=== PATIENT | female | born 1985 | race African-American/Black ===

== ENCOUNTER 2020-07-14 10:02 | Outpatient (CLI) | payer OTHER, SELFPAY ==
--- NOTE | ~2020-07-14 | XR_ITS ---
XR hysterosalpingogram DATE: 07/14/2020 12:03 INDICATION: Fertility testing TECHNIQUE: Fluoroscopy and spot images were performed during a hysterosalpingogram procedure performe d by the access liaison. 2 minutes fluoroscopy time DAP: 11.5 40 mL Omnipaque 240 contrast COMPARISON: None FINDINGS: Initial injection resulted in venous reflux of contrast material. Subsequently catheter placement in the uterine cavity revealed bilateral normal fallopian tube opacif ication and evidence of bilateral peritoneal spillage. IMPRESSION: Bilateral fallopian tube patency Reviewed, dictated and finalized at [facility]. Reviewed, dictated and finalized at [facility]. RITY SCREENER
[2020-07-14 11:12] LABS: Beta HCG Quantitative < 2.39 mIU/ML
== END 2020-07-14 10:03 | disposition home or self-care (01) ==
PROVIDERS: PCP Obstetrics & Gynecology; Visit Provider Obstetrics & Gynecology
DX: Z31.41 Encounter for fertility testing (principal)
CPT/HCPCS: 36415; 58340; 74740; 84702; Q9966

== ENCOUNTER → 2021-05-30 13:40 | Outpatient (CLI) | payer OTHER, SELFPAY ==
--- NOTE | ~2021-05-30 | US_ITS ---
EXAMINATION: US OB transvaginal DATE: 05/30/2021 14:23 INDICATION: Uncertain gestational dates TECHNIQUE: Real-time transabdominal and transvaginal obstetric ultrasound. FINDINGS: No prior studies for comparison. The uterus measures 9 x 6.9 x 6.4 cm. There is an intrauterine gestational sac, with pole ident ified. The crown rump length measures 2.31 cm, which correlates with a estimated gestational age of 5 weeks 6 days. No heart motions detected. There is a uterine fibroid measuring 2.7 cm. There i s a 1.6 cm corpus luteal cyst of the left ovary. Right ovary is unremarkable. No free fluid in the pe lvic cul-de-sac. IMPRESSION: 1. Intrauterine gestational sac containing a pole corresponding to 5 week 6 day gestation (KELY 01/24/2022). No heart motions detected. This may be due to early gestational age or demise . Recommend follow-up with serial quantitative beta-hCG levels and ultrasound as clinically indicated . Reviewed, dictated and finalized at location [facility]. IMPRESSION: 1. Intrauterine gestational sac containing a pole corresponding to 5 week 6 day gestation (KELY 01/24/2022). No heart motions detected. This may be due to early gestational age or demise. Recommend follow-up with serial q uantitative beta-hCG levels and ultrasound as clinically indicated.
== END ==
PROVIDERS: Visit Provider Nurse Practitioner
DX: Z34.91 Encounter for supervision of normal pregnancy, unspecified, first trimester (principal); Z3A.01 Less than 8 weeks gestation of pregnancy
CPT/HCPCS: 76817

== ENCOUNTER → 2021-06-07 09:39 | Outpatient (CLI) | payer OTHER, SELFPAY ==
--- NOTE | ~2021-06-07 | US_ITS ---
EXAMINATION: US OB transvaginal DATE: 06/07/2021 11:36 INDICATION: First trimester viability assessment TECHNIQUE: Real-time pelvic transabdominal and transvaginal ultrasound was performed. COMPARISON: 05/30/2021 FINDINGS: The uterus measures 8.7 x 5.9 x 6.6 cm. There is an intrauterine gestational sac which is now irregular in appearance. A yolk sac is identified. No cardiac motion is observed. The crown rump length is difficult to measure. The right ovary measures 1.6 x 1.1 x 2.1 cm. The left ova ry measures 3.1 x 2.2 x 2.7 cm and contains a 1.4 x 1.3 cm complex cyst. There is normal vascular yarelis w in the ovaries. There is no free fluid in the pelvis. IMPRESSION: 1. Irregular gestational sac with pole difficult to measure and no demonstrable cardiac motion. Findings are concerning for failure. Reviewed, dictated and finalized at location [facility]. IMPRESSION: 1. Irregular gestational sac with pole difficult to measure and no demons trable cardiac motion. Findings are concerning for failure.
== END ==
PROVIDERS: Visit Provider Obstetrics & Gynecology Gynecology
DX: O36.80X0 Pregnancy with inconclusive fetal viability, not applicable or unspecified (principal); N83.202 Unspecified ovarian cyst, left side
CPT/HCPCS: 76817

== ENCOUNTER 2021-06-09 02:36 | Day surgery (SDC) | payer OTHER, SELFPAY ==
[2021-06-08 09:01] VITALS: BMI 24.2
--- NOTE | 2021-06-08 09:12 | PC.NURSE ---
Report to the Outpatient Waiting Room, entrance under the green pavilion located off [facility], at time ___1000____ on date __06/09/21 . OR Time: ___1200 . - You and your visitor will be asked a series of questions to screen for COVID 19 for your protection. - A mask is required within the hospital. - Only one visitor is allowed at this time. Patient visitors will be guided where to wait when not with patient. Preoperative COVID Testing Requirements: No COVID Test needed if: (proof is required; if not received patient will have Rapid Test prior to entry) - Patient has received COVID Vaccine at least 14 days prior to procedure date or - Patient has positive COVID test result within last 90 days of surgery date. COVID Test needed if above criteria is not met If not COVID vaccinated a COVID test must be conducted within 72 hours of surgery and patient is asked to isolate self from time of testing until procedure. You will go to the [employer] [facility] for your COVID testing. The [employer] [facility] is located at the corner of [address] from [facility]. You will only be called if COVID results are positive and your surgeon may reschedule your elective surgery date. Patients may have clear liquids (water, carbonated beverages, clear teas, apple juice) until 3 hours prior to surgery with a maximum of 20 ounces. - No food from midnight until time of surgery - Infants may have breast milk until 4 hours before surgery, formula 6 hours prior to surgery. - Children will be allowed to drink immediately following surgery. If applicable, please bring a bottle or sippy cup to assist with drinking. Juice, water, soda, and popsicles are readily available. For infants on formula, please bring formula the day of surgery. Pacifiers are allowed. Take the following medications with a SIP of water the morning of surgery: ____NONE Medications to discontinue per physician ALL VITAMINS/SUPPLEMENTS, ASPIRIN Date to take last dose__LAST DOSE WAS 06/05/21 Please no make-up, nail uzbek, hairspray, perfume, deodorant, or body powder the day of surgery. No jewelry (including any body piercings) or valuables the day of surgery, leave them at home. Please take a shower or bath the night before, or the morning of, surgery with an antibacterial soap. Wear comfortable, loose fitting clothing. Children are encouraged to wear pajamas. - Jewelry must be removed prior to entering the operating room. Rings and piercings that are not removed may be cut off. - The hospital will not accept responsibility for valuables. - Please leave all valuables, including medications, at home the day of surgery. If you are going home after surgery, a licensed jukebox route driver must drive you home. - NO public transportation without another adult. - We recommend that an adult stay with you for 24 hours following discharge. - We also recommend that you do not drive, make important decision, drink alcoholic beverages, or take any drugs that were not prescribed by your health care provider for at least 24 hours after your discharge time. For Pediatric surgeries, we recommend two adults accompany the child home (only one inside the building at this time). Follow any additional instructions given to you from your surgeon. Telephone instructions given to ____PATIENT and asked if any additional questions and then verbalized understanding. Patient advised to call surgeon office or pre surgery nurse liaison [phone] if any additional questions.
[2021-06-09 10:48] VITALS: BP 115/94; PULSE 104; RESP 20; TEMP 36.6; O2SAT 100
--- NOTE | 2021-06-09 10:48 | P.PNAN_ITS ---
Anes - Initial Pre Proc Eval Procedure: Operation Date: 06/09/21 12:00 Proposed Procedures p Suction Dilatation and Curettage - Lorie Magallanes MD Date/Time: 06/09/21 10:48 Surgeon: Lorie Magallanes MD Pre Op Diagnosis: missed ab Patient Data Age: 36 Gender: F Height: 1.57 m Weight: 60 kg Allergies Allergy/AdvReac Type Severity Reaction Status Date / Time No Known Allergies Allergy Verified 06/09/21 10:36 Home Medications Medication Instructions Recorded Confirmed Type aspirin [Adult Aspirin] 81 mg PO DAILY 06/08/21 06/08/21 History choline 1 cap PO DAILY 06/08/21 06/08/21 History vit no.[id number] 1 tablet PO DAILY 06/08/21 06/08/21 History [Classic ] Patient hx anesthesia problems: none Family hx anesthesia problems: none Results Review: All pre-operative results and documents have been reviewed as part of the pre-operative evaluation. [facility] Social History Social History Smoking status: Never smoker Alcohol intake: current Drinks per week: 4 Substance use: never Living arrangements: with family Additional living arrangements comments: Spiritual care concerns: No Anes - Eval Final PreProcedure Day of Procedure 06/09/21 10:48 Patient weight: normal Heart: regular rate and rhythm Lungs: clear to auscultation Airway: Mallampati scale class 1 Neurological: alert and oriented Last oral intake: >/= 8 hours ASA classification: I Emergent: no Anesthetic plan: proceed Anesthesia type and monitoring: general GIVS and standard monitoring Results Review: All pre-operative results and documents have been reviewed as part of the pre-operative evaluation. Informed Consent: The patient's anesthetic plan and its attendant risks and benefits were discussed with the patient/family/POA. Questions were solicited and answers provided to the satisfaction of the patient/family/POA.
[2021-06-09] MEDS: ACETAMINOPHEN 500 MG TABLET 1000 MG PO (10:53)
[2021-06-09] MEDS: LACTATED RINGERS 1,000 ML 30 ML IV CONT (10:54)
--- NOTE | 2021-06-09 11:57 | P.HP_ITS ---
History of Present Illness History of Present Illness Consent: Risks, benefits, and alternatives have been discussed and questions answered. Patient agrees to proceed with procedure. Chief complaint: missed ab Narrative: Yokasta Vo is a 36 year old female with decreasing beta HCG levels and pelvic ultrasound revealing a small sac that is irregular and no demonstrated cardiac motion. Findings are consistent with a missed . Options were discussed with the patient and she has chosen to proceed with surgical intervention. Plan is to proceed with suction D&C. Risks of infection, bleeding, and perforation were reviewed. Patient voices understanding and agrees to proceed. Postop expectations were discussed with the patient. Review of Systems Review of Systems: No vaginal bleeding or cramping No complaints PMFSH Past Medical History Medical History (Updated 06/09/21 @ 12:01 by Lorie Magallanes MD) Termination of 2002 Ulcerative colitis Diagnosed 2008 no meds required since 2010 Social History Social History Smoking status: Never smoker Alcohol intake: current Drinks per week: 4 Substance use: never Living arrangements: with family Additional living arrangements comments: Spiritual care concerns: No Meds Home Medications and Allergies Home Medications Medication Instructions Recorded Confirmed Type aspirin [Adult Aspirin] 81 mg PO DAILY 06/08/21 06/08/21 History choline 1 cap PO DAILY 06/08/21 06/08/21 History vit [id number] 1 tablet PO DAILY 06/08/21 06/08/21 History [Classic ] Allergies Allergy/AdvReac Type Severity Reaction Status Date / Time No Known Allergies Allergy Verified 06/09/21 10:36 Vital Signs Vital Signs - 24 hr 06/09/21 10:48 Temperature 97.9 F Pulse Rate 104 H Respiratory Rate 20 Blood Pressure 115/94 H Pulse Oximetry 100 Exam 2 Const: General: healthy appearing and alert Orientation/consciousness: patient oriented x3 GI: GI Palp: Yes Soft to palpation, No Tenderness to palpation present (GI) and No Palpable mass present : External Female Exam: normal external appearance Speculum Exam - Vagina: normal appearance of the vagina and normal vaginal discharge Speculum Exam - Cervix: normal appearance of the cervix Bimanual exam- vagina & uterus: uterine size normal and consistency normal Bimanual Exam- Adnexa, other: normal adnexae and No adnexal tenderness Neuro: General: patient oriented x3 Assessment and Plan Assessment and plan (1) Missed : Code(s): O02.1 - Missed Status: Acute Assessment and Plan: Plan to proceed with suction D&C
--- NOTE | 2021-06-09 12:01 | WPDHPUPDATE1 ---
History and Physical Update Update Date/Time: 06/09/21 12:01 History and Physical has been reviewed, including an updated exam of the patient. There are NO changes in the patient's condition. Risks, benefits, and alternatives have been discussed and questions answered. Patient agrees to proceed with procedure.
--- NOTE | 2021-06-09 12:25 | P.OP_ITS ---
Procedure Note - Detailed Date of Procedure 06/09/21 Pre-op Diagnosis missed ab Post-op Diagnosis same Procedure Performed Suction D&C Surgeon Lorie Magallanes MD Anesthesia MAC and local Findings Uterus sounds to 10cm. Minimal products of conception. Description of Procedure The patient was taken to the operating room and placed under anesthesia in the dorsal lithotomy position. She was prepped and draped in the usual sterile fashion. The bivalve speculum was placed in the vagina and the cervix grasped on the anterior lip with a tenaculum. The cervix is injected with 1% lidocaine in each quadrant. The uterus is sounded to 10cm. The 8cm curved suction curette was used to evacuate the uterus until no further products were noted in the tubing. Sharp curette was performed and no additional products were noted. One additional pass with the curved suction curette was taken. All instruments are removed. Sponge, needle, and instrument counts are correct per the OR staff. Patient is awakened from anesthesia and taken to recovery in stable co ndition. Estimated Blood Loss 10 Drains No Packing No Pathology yes (Endometrial products of conception) Complications No immediate complications Condition stable Disposition PACU
[2021-06-09 12:35] VITALS: BP 137/86; PULSE 94; RESP 16; O2SAT 100
[2021-06-09 13:05] VITALS: BP 136/83; PULSE 86; RESP 16
== END 2021-06-09 13:19 | disposition home or self-care (01) ==
PROVIDERS: Visit Provider Obstetrics & Gynecology Gynecology
PROC: (CPT 59820; principal; 2021-06-09 12:00)
DX: O02.1 Missed abortion (principal); Z87.19 Personal history of other diseases of the digestive system; Z79.82 Long term (current) use of aspirin
CPT/HCPCS: 59820; 36415; 85461; 88305; A9270; J1100; J2250; J2405; J2704; J3010; J7120